=== PATIENT | female | born 1940 | race Caucasian/White ===

== ENCOUNTER 2019-04-25 05:39 | Inpatient (IN) ==
[2019-04-25] MEDS ORDERED: VANCOMYCIN INJ 1,000 MG in SODIUM CHLORIDE 0.9% 250 ML IV ONE (06:00)
[2019-04-25] MEDS ORDERED: ceFAZolin 1,000 MG in SYRINGE 1 EACH IV ONE (06:00)
[2019-04-25] MEDS ORDERED: FAMOTIDINE 20 MG TABLET PO ONE (06:02)
[2019-04-25] MEDS ORDERED: GABAPENTIN 400 MG CAPSULE PO ONE (06:03)
[2019-04-25] MEDS ORDERED: ACETAMINOPHEN 500 MG TABLET PO ONE (06:03)
[2019-04-25] MEDS ORDERED: DIAZEPAM 5 MG TABLET PO ONE (06:04)
[2019-04-25] MEDS ORDERED: LACTATED RINGERS 1,000 ML IV SCH (07:30)
[2019-04-25] MEDS ORDERED: ceFAZolin 1,000 MG VIAL ONE (07:46)
[2019-04-25] MEDS ORDERED: FAMOTIDINE 20 MG TABLET ONE (07:46)
[2019-04-25] MEDS ORDERED: ACETAMINOPHEN 500 MG TABLET ONE (07:46)
[2019-04-25] MEDS ORDERED: GABAPENTIN 400 MG CAPSULE ONE (07:46)
[2019-04-25] MEDS ORDERED: DIAZEPAM 5 MG TABLET ONE (07:46)
[2019-04-25] MEDS ORDERED: VANCOMYCIN 1,000 MG VIAL ONE (07:46)
[2019-04-25] MEDS ORDERED: BUPIVACAINE SPINAL 0.75% 2 ML AMP SPINAL ONE (08:01)
[2019-04-25] MEDS ORDERED: MORPHINE 4 MG/1 ML VIAL IV PRN (10:08)
[2019-04-25] MEDS ORDERED: diphenhydrAMINE CAP 25 MG CAPSULE PO PRN (10:08)
[2019-04-25] MEDS ORDERED: oxyCODONE IR 5 MG TABLET PO PRN ×2 (10:08)
[2019-04-25] MEDS ORDERED: MAGNESIUM HYDROXIDE SUSP 30 ML UDCUP PO PRN (10:08)
[2019-04-25] MEDS ORDERED: ZALEPLON 5 MG CAPSULE PO PRN (10:08)
[2019-04-25] MEDS ORDERED: fentaNYL 100 MCG/2 ML VIAL ONE (10:29)
[2019-04-25] MEDS ORDERED: PROPOFOL 200 MG/20 ML VIAL IV ONE (10:29)
[2019-04-25] MEDS ORDERED: PHENYLEPHRINE 1 MG/10 ML SYRINGE IV ONE (10:30)
[2019-04-25] MEDS ORDERED: TRANEXAMIC ACID 1,000 MG/10 ML VIAL ONE (10:30)
[2019-04-25] MEDS ORDERED: SODIUM CHLORIDE 0.9% 100 ML IV ONE (10:30)
[2019-04-25] MEDS ORDERED: KETAMINE 500 MG/10 ML VIAL ONE (10:30)
[2019-04-25] MEDS ORDERED: SODIUM CHLORIDE 0.9% 250 ML IV ONE (10:30)
[2019-04-25] MEDS ORDERED: MIDAZOLAM 2 MG/2 ML VIAL ONE (10:30)
[2019-04-25] MEDS: KETOROLAC 15 MG/1 ML VIAL IV SCH ×3 (12:13→21:31)
[2019-04-25] MEDS: LACTATED RINGERS 1,000 ML IV SCH (15:55)
[2019-04-25] MEDS: ceFAZolin 1,000 MG in SYRINGE 1 EACH IV SCH (17:46)
[2019-04-25] MEDS: DOCUSATE SODIUM 100 MG CAPSULE PO SCH (21:30)
[2019-04-25] MEDS: MORPHINE 4 MG/1 ML VIAL IV PRN (22:54)
[2019-04-26] MEDS: LACTATED RINGERS 1,000 ML IV SCH ×3 (01:00→05:39)
[2019-04-26] MEDS: ceFAZolin 1,000 MG in SYRINGE 1 EACH IV SCH (01:21)
[2019-04-26] MEDS: KETOROLAC 15 MG/1 ML VIAL IV SCH (03:56)
[2019-04-26 04:47] LABS: Basophils % 0.3 % (0.0-0.8); Eosinophils % 0.2 % (0.00-10.9); Hematocrit 31.9 VOL% (35.7-47.0); Hemoglobin 10.2 GM/DL (12.0-16.0); Immature Granulocytes % 0.5 %; Immature Granulocytes Absolute 0.06 #; Lymphocytes # 1.6 10*3/uL (1.4-4.0); Lymphocytes % 13.8 % (21.3-54.2); Mean Corpuscular Volume 95.8 FL (87-102); Mean Platelet Volume 9.5 FL (9.6-12.0); Monocytes % 7.8 % (1.7-12.7); Neutrophils % 77.4 % (38.7-73.9); Platelet Count 268 T/CUMM (130-400); Red Blood Count 3.33 MC/CUMM (3.8-5.5); Red Cell Distribution Width 11.8 % (9.3-17.3); White Blood Count 11.6 T/CUMM (4-12)
[2019-04-26 05:10] LABS: Calcium 8.3 MG/DL (8.5-10.1); Osmolality,Calculated 281.1 MOS/KG (273-304)
[2019-04-26] MEDS: ESTROGENS (CONJ) 0.625 MG TABLET PO SCH (10:04)
[2019-04-26] MEDS: FONDAPARINUX 2.5 MG/0.5 ML SYRINGE SUBCUT SCH (10:04)
[2019-04-26] MEDS: PANTOPRAZOLE 40 MG TABLET PO SCH (10:04)
[2019-04-26] MEDS: DOCUSATE SODIUM 100 MG CAPSULE PO SCH ×2 (10:04→21:09)
[2019-04-26] MEDS ORDERED: ACETAMINOPHEN 325 MG TABLET PO PRN (10:09)
[2019-04-26] MEDS: ONDANSETRON 4 MG/2 ML VIAL IV PRN ×2 (15:28→21:10)
[2019-04-26] MEDS: MORPHINE 4 MG/1 ML VIAL IV PRN (21:12)
[2019-04-27] MEDS: ONDANSETRON 4 MG/2 ML VIAL IV PRN ×2 (04:09→09:24)
[2019-04-27 04:54] LABS: Basophils # 0.1 10*3/uL (0.0-0.2); Basophils % 0.7 % (0.0-0.8); Eosinophils # 0.2 10*3/uL (0.0-0.87); Eosinophils % 2.4 % (0.00-10.9); Hematocrit 30.3 VOL% (35.7-47.0); Hemoglobin 9.8 GM/DL (12.0-16.0); Immature Granulocytes % 0.4 %; Immature Granulocytes Absolute 0.04 #; Lymphocytes # 2.3 10*3/uL (1.4-4.0); Lymphocytes % 25.3 % (21.3-54.2); Mean Corpuscular HGB Conc 32.3 GM/DL (32-36); Mean Corpuscular Volume 95.9 FL (87-102); Mean Platelet Volume 9.6 FL (9.6-12.0); Monocytes % 7.2 % (1.7-12.7); Platelet Count 263 T/CUMM (130-400); Red Blood Count 3.16 MC/CUMM (3.8-5.5); Red Cell Distribution Width 11.9 % (9.3-17.3); White Blood Count 9.1 T/CUMM (4-12)
[2019-04-27] MEDS ORDERED: PROMETHAZINE 25 MG TABLET PO PRN (08:16)
[2019-04-27] MEDS: ESTROGENS (CONJ) 0.625 MG TABLET PO SCH (09:25)
[2019-04-27] MEDS: PANTOPRAZOLE 40 MG TABLET PO SCH (09:25)
[2019-04-27] MEDS: DOCUSATE SODIUM 100 MG CAPSULE PO SCH (09:25)
[2019-04-27] MEDS: FONDAPARINUX 2.5 MG/0.5 ML SYRINGE SUBCUT SCH (09:25)
[2019-04-27 11:38] VITALS: BP 109/48
== END 2019-04-27 13:57 | disposition home health service (06) | DRG 470 ==
LOC: N.PREADM 05:39 → N.SDSINP 05:39 → N.3E 10:08
PROVIDERS: ADMIT Orthopaedic Surgery; ATTEND Orthopaedic Surgery